=== PATIENT | female | born 1955 | race Hispanic/Latino ===

== ENCOUNTER 2017-10-16 07:59 | Day surgery (SDC) | payer SELFPAY ==
[~2017-10-16] VITALS: Ht 165.1 cm; Wt 93.4 kg
[~2017-10-16 07:59] MED LIST: AMLO5TAB2 PO; DIAZ2TAB3 PO; FAMO20TA8 PO; HYDR12.54 PO; LEVO150T11 PO; MECL-111 PO; SODIUM CHLORIDE 0.9% 1000ML 1,000 ML IV ONE
[2017-10-16 09:00] VITALS: BP 144/69
[2017-10-16] MEDS ORDERED: LIDOCAINE HCL 2% 20ML ONE (10:27)
[2017-10-16] MEDS ORDERED: MIDAZOLAM HCL 1 MG/ML 2ML VIAL ONE (10:27)
[2017-10-16 11:00] VITALS: BP 95/53
== END 2017-10-16 11:40 | disposition home or self-care (01) ==
LOC: ENDO 07:59 → DAH 07:59 → ENDO 11:40
PROVIDERS: ATTEND Internal Medicine
DX: K29.50 Unspecified chronic gastritis without bleeding (principal); K31.89 Other diseases of stomach and duodenum; I10 Essential (primary) hypertension; F41.9 Anxiety disorder, unspecified; F32.9 Major depressive disorder, single episode, unspecified; E03.9 Hypothyroidism, unspecified; C22.8 Malignant neoplasm of liver, primary, unspecified as to type; M19.90 Unspecified osteoarthritis, unspecified site; Z85.9 Personal history of malignant neoplasm, unspecified; Z98.890 Other specified postprocedural states; Z82.49 Family history of ischemic heart disease and other diseases of the circulatory system
CPT/HCPCS: 43237; 43239; A4606; J2250; J3490; J7030; 43231